=== PATIENT | male | born 1940 | race Asian ===

== ENCOUNTER 2018-04-02 09:09 | Inpatient (IN) | payer MEDICARE ==
[~2018-04-02] VITALS: Ht 162.6 cm; Wt 47.2 kg
[2018-04-02] MEDS: METRONIDAZOLE 500MG/NS 100ML 100 ML IV SCH (00:40)
[2018-04-02] MEDS ORDERED: SODIUM CHLORIDE 0.9% 1000ML 1,000 ML IV STA (09:25)
[2018-04-02 09:38] LABS: BASOPHILS # (AUTO) 0.1 (0.0-0.1); EOSINOPHILS % 0.4 % (0.0-6.0); HEMATOCRIT 25.9 % (38.2-49.6); HEMOGLOBIN 9.5 g/dL (14.0-18.0); LYMPHOCYTES # (AUTO) 1.3 (1.0-3.2); LYMPHOCYTES % 25.6 % (18.0-39.1); MEAN CORPUSCULAR HEMOGLOBIN 36.3 pg (28-32); MEAN CORPUSCULAR HGB CONC 36.7 g/dL (31-35); MEAN CORPUSCULAR VOLUME 98.9 fL (81-99); MONOCYTES # (AUTO) 0.6 (0.2-0.8); MONOCYTES % 12.8 % (4.4-11.3); PLATELET COUNT 113 x10e3/uL (140-360); RED BLOOD COUNT 2.62 x10e6/uL (4.3-5.7); RED CELL DISTRIBUTION WIDTH 15.6 % (11.7-14.4)
[2018-04-02 09:42] LABS: BILIRUBIN,URINE NEGATIVE (NEGATIVE); CLARITY,URINE CLEAR (CLEAR); COLOR,URINE YELLOW (YELLOW); KETONES,URINE NEGATIVE (NEGATIVE); LEUKOCYTE ESTERASE ,URINE NEGATIVE (NEGATIVE); NITRITE,URINE NEGATIVE (NEGATIVE); PROTEIN,URINE DIPSTICK NEGATIVE (NEGATIVE); URINE UROBILINOGEN 0.2 mg/dL (0.2 - 1)
[2018-04-02 10:12] LABS: BACTERIA,URINE FEW /HPF; EPITHELIAL CELLS,URINE FEW /LPF; RBC,URINE 0-5 /HPF (0-5); WBC,URINE (MAN) 0-5 /HPF (0-5)
[2018-04-02 10:16] LABS: ALBUMIN 3.1 g/dL (3.5-5.0); ALBUMIN/GLOBULIN RATIO 0.7 (0.8-2.0); ANION GAP 17.2 mmol/L (8-16); CALCIUM 8.7 mg/dL (8.4-10.2); CREATININE, SERUM 1.59 mg/dL (0.72-1.25); POTASSIUM 4.2 mmol/L (3.5-5.1)
[2018-04-02 10:22] LABS: CREATINE KINASE MB 1.7 ng/mL (0-5.0)
--- NOTE | 2018-04-02 10:31 | Diagnostic Imaging Report ---
PROCEDURE: CHEST SINGLE (PORTABLE) COMPARISON: None. INDICATIONS: SHORTNESS OF BREATH FINDINGS: LUNGS: No consolidations or edema. PLEURA: No effusions or pneumothorax. HEART \T\ MEDIASTINUM: The heart is within normal size-limits. BONES \T\ SOFT TISSUES: No acute findings. CONCLUSION: No acute thoracic abnormality. Jose Armas D.O. Dictated by: Jose Armas D.O. on 04/02/2018 at 10:35 Electronically approved by: Jose Armas D.O. on 04/02/2018 at 10:35
[2018-04-02] MEDS ORDERED: DIATRIZOATE MEGL/DIATRIZOA SOD 30 ML BTL PO ONE (11:29)
[2018-04-02] MEDS ORDERED: LORAZEPAM INJ 2 MG/ML VIAL IV PRN (12:15)
[2018-04-02] MEDS ORDERED: ONDANSETRON HCL INJ 2 MG/ML VIAL IV PRN (12:15)
[2018-04-02] MEDS ORDERED: MULTIVITAMINS- 12 INJECTION 10 ML, FOLIC ACID MDV 5 MG, THIAMINE HCL INJ 100 MG in SODI... IV ONE (12:15)
[2018-04-02] MEDS ORDERED: MORPHINE SULFATE 2 MG/ML SYR IV PRN (12:15)
[2018-04-02] MEDS ORDERED: INSULIN LISPRO 100 UNIT/1 ML 3ML VIAL SQ STA (12:18)
[2018-04-02] MEDS ORDERED: DEXTROSE 50% SYRINGE 50 ML IV PRN (12:30)
--- NOTE | 2018-04-02 13:27 | Diagnostic Imaging Report ---
PROCEDURE: CT ABDOMEN AND PELVIS WITHOUT CONTRAST TECHNIQUE: The abdomen and pelvis were scanned utilizing a multidetector helical scanner from the diaphragm to the lesser trochanter after the oral administration of dilute Gastrografin. No IV contrast was administered per physician's request. Coronal and sagittal multiplanar reformations were obtained. COMPARISON: None. INDICATIONS: ELEVATED BLOOD SUGAR FINDINGS: ABSENCE OF INTRAVENOUS CONTRAST DECREASES SENSITIVITY FOR DETECTION OF FOCAL LESIONS AND VASCULAR PATHOLOGY. LOWER THORAX: Minimal posterior medial right lower lobe atelectatic changes. Atherosclerotic calcification of the aortic valves, coronary arteries and thoracic aorta. HEPATOBILIARY: Heterogeneous attenuation of the hepatic parenchymal with diffusely decreased attenuation, consistent with fatty infiltration. Ill-defined 1.8 x 1.6 cm rounded lesion in hepatic segment (series 2, image 21) which is mildly hyperdense compared to the rest of the hepatic parenchyma. No biliary ductal dilation. Cholecystectomy clips. SPLEEN: No splenomegaly. PANCREAS: No focal lesion or ductal dilation. Mild pancreatic atrophy. No significant peripancreatic fat stranding, free fluid or fluid collections. ADRENALS: No adrenal nodules. KIDNEYS/URETERS: No hydronephrosis, stones, or solid mass lesions. Increased attenuation of the collecting systems, which may represent partly excreted contrast. PELVIC ORGANS/BLADDER: Bladder is moderately distended, but shows no focal lesions or wall thickening. Prostate is unremarkable. PERITONEUM / RETROPERITONEUM: No free air or fluid. LYMPH NODES: No lymphadenopathy. VESSELS: Moderate to marked atherosclerotic calcification of the abdominal aorta and iliac vessels. GI TRACT: No bowel dilation or evidence of obstruction. No pericolonic inflammatory changes. BONES AND SOFT TISSUES: No acute bony abnormalities. Multilevel degenerative disc changes in the lower thoracic and lumbosacral spine. Mild osteopenia. Facet hypertrophy L3-S1. IMPRESSION: 1. no acute abdominopelvic abnormalities in this noncontrast CT. 2. No significant peripancreatic fat stranding, free fluid or fluid collections to suggest pancreatitis. 3. Heterogeneous hepatic steatosis. An ill-defined 1.8 cm lesion in hepatic segment , which is higher in attenuation than the rest of the hepatic parenchyma may represent a focus of fatty sparing. This can be further assessed with MRI abdomen with liver mass protocol on a nonemergent basis and after clearing of current bowel contrast, if renal function permits. 4. Moderate to marked atherosclerotic vascular disease. Jules Whitfield M.D. Dictated by: Jules Whitfield M.D. on 04/02/2018 at 13:31 Electronically approved by: Jules Whitfield M.D. on 04/02/2018 at 13:31
[2018-04-02 16:20] VITALS: BP 115/74
[2018-04-02] MEDS: INSULIN REGULAR, HUMAN 100 UNIT/1 ML 3ML VIAL SQ SCH ×2 (16:30→20:45)
[2018-04-02 17:08] VITALS: BP 115/74
[2018-04-02] MEDS: SODIUM CHLORIDE 0.9% 1000ML 1,000 ML IV SCH (17:30)
[2018-04-02 17:52] LABS: CHOL/HDL RATIO 4.6 (3.9-4.7)
--- NOTE | 2018-04-02 19:53 | Diagnostic Imaging Report ---
EXAM: MR Abdomen WITHOUT Contrast Magnetic Resonance Cholangiopancreatography (M.R.C.P.) INDICATION: \S\liver lesion- further eval. COMPARISON: CT 04/02/2018 TECHNIQUE: Multiplanar and multisequence imaging was performed of the abdomen without contrast. T1-weighted, T2-weighted images, T1-weighted in and [id number], and Diffusion weighted images. M.R.C.P. Technique: Multiplanar, multisequence MRCP was performed. IV Contrast: None Oral Contrast: None Medications: None COMPLICATIONS: None FINDINGS: LOWER THORAX: Unremarkable. HEPATOBILIARY: Diffuse signal loss on out of phase images compatible with steatosis. Right hepatic 2.3 cm and 1.8 cm lesions (axial T2 FRFSE series 8 image 21) appear T2 intermediate, T1 hypointense, and show mild restricted diffusion. These remain incompletely characterized without intravenous contrast. These do not appear to represent fatty sparing. No biliary ductal dilation. GALLBLADDER: Cholecystectomy. SPLEEN: No splenomegaly. PANCREAS: No focal masses or ductal dilatation. ADRENALS: No adrenal nodules KIDNEYS/URETERS: Kidneys enhance symmetrically. No hydronephrosis. No suspicious signal abnormalities. GI TRACT: No abnormal distention, wall thickening, or evidence of bowel obstruction. LYMPH NODES: No lymphadenopathy. VESSELS: Lobulated contour of the abdominal aorta related to atherosclerosis. PERITONEUM / RETROPERITONEUM: No free fluid. BONES: Unremarkable. SOFT TISSUES: Unremarkable. IMPRESSION: Two lesions in the right hepatic lobe are inadequately evaluated without contrast and remain indeterminate. Recommend further evaluation with contrast-enhanced abdominal MRI when GFR permits. Otherwise, consider tissue sampling for definitive characterization or follow-up noncontrast MRI to document stability. Signed by: DR. Seven Galvez MD on 04/02/2018 7:49 PM
[2018-04-02 20:18] VITALS: BP 93/56
[2018-04-02] MEDS ORDERED: SODIUM CHLORIDE 0.9% 500ML 500 ML ONE ×2 (20:26→22:43)
[2018-04-02] MEDS ORDERED: SODIUM CHLORIDE 0.9% 1000ML 500 ML IV ONE (22:30)
[2018-04-02] MEDS: LEVOFLOXACIN 500MG/D5W 100ML 100 ML IV SCH (23:45)
[2018-04-03 00:31] VITALS: BP 95/74
[2018-04-03] MEDS: METRONIDAZOLE 500MG/NS 100ML 100 ML IV SCH ×4 (00:45→22:10)
[2018-04-03 05:24] VITALS: BP 80/57
[2018-04-03 06:20] LABS: BASOPHILS % 0.4 % (0.0-1.0); EOSINOPHILS % 0.6 % (0.0-6.0); HEMATOCRIT 22.9 % (38.2-49.6); HEMOGLOBIN 8.5 g/dL (14.0-18.0); LYMPHOCYTES % 42.4 % (18.0-39.1); MEAN CORPUSCULAR HEMOGLOBIN 36.8 pg (28-32); MEAN CORPUSCULAR HGB CONC 37.1 g/dL (31-35); MEAN CORPUSCULAR VOLUME 99.1 fL (81-99); MONOCYTES # (AUTO) 0.5 (0.2-0.8); MONOCYTES % 11.4 % (4.4-11.3); NEUTROPHILS # (AUTO) 2.1 (2.1-6.9); RED BLOOD COUNT 2.31 x10e6/uL (4.3-5.7); RED CELL DISTRIBUTION WIDTH 15.3 % (11.7-14.4)
[2018-04-03 06:42] LABS: CALCIUM 7.6 mg/dL (8.4-10.2); CREATININE, SERUM 1.25 mg/dL (0.72-1.25)
[2018-04-03 06:54] LABS: ANION GAP 14.2 mmol/L (8-16)
[2018-04-03 06:55] LABS: POTASSIUM 3.2 mmol/L (3.5-5.1)
[2018-04-03] MEDS: INSULIN REGULAR, HUMAN 100 UNIT/1 ML 3ML VIAL SQ SCH ×4 (07:30→21:00)
[2018-04-03 07:31] LABS: ALBUMIN 2.4 g/dL (3.5-5.0); ALBUMIN/GLOBULIN RATIO 0.6 (0.8-2.0); ANION GAP 12.3 mmol/L (8-16); CALCIUM 7.7 mg/dL (8.4-10.2); CREATININE, SERUM 1.32 mg/dL (0.72-1.25); POTASSIUM 3.3 mmol/L (3.5-5.1)
[2018-04-03 07:46] LABS: PLATELET COUNT 47 x10e3/uL (140-360)
[2018-04-03 08:01] VITALS: BP 91/54
[2018-04-03] MEDS ORDERED: THIAMINE HCL INJ 100 MG/ML 2ML VIAL ONE (08:39)
[2018-04-03] MEDS ORDERED: THIAMINE HCL INJ 100 MG/ML 2ML VIAL IV SCH (09:00)
--- NOTE | 2018-04-03 09:44 | Progress Note ---
DATE: April 03, 2018 TIME: 8 a.m. SUBJECTIVE: Overnight the patient was hypotensive. REVIEW OF SYSTEMS: Denies any chest pain, shortness of breath, fever or chills or sweats, no nausea, vomiting or diarrhea. OBJECTIVE VITAL SIGNS: Reviewed. Blood pressure is low at 80/57 and temperature as low at 95.9. GENERAL APPEARANCE: A tired-appearing man resting in the bed. HEENT: Anicteric. CARDIOVASCULAR: Normal S1 and S2. No murmurs. LUNGS: Moderate breath sounds, ABDOMEN: Soft and nontender. EXTREMITIES: There is no edema. SKIN: Dry. PSYCHIATRIC: Flat affect. LABS: Reviewed. MEDICATIONS: Reviewed. ASSESSMENT: A 77-year-old man. 1. Alcoholism. 2. Acute pancreatitis. 3. Diabetes mellitus. Hemoglobin A1c 9.9. LDL 21 and triglycerides 219. 4. Normocytic anemia. 5. Thrombocytopenia. 6. Hyponatremia. 7. Acute kidney injury. 8. Transaminitis. 9. Hepatic steatosis. 10. Liver lesion. 11. Severe sepsis with acute kidney injury. 12. Thrombocytopenia. PLAN: 1. Continue rehydration. 2. Add 2 grams of sodium chloride salt q.8 h. for hyponatremia. 3. Follow up BNP later today. 4. Consider replacing potassium. 5. Monitor renal function. 6. Thrombocytopenia, likely secondary to sepsis. 7. Obtain random serum cortisone. 8. Start Midodrine. 9. He received 3 liters bolus fluid overnight. Will give more fluids. 10. Obtain urine sodium, urine osmolality and serum osmolality. 11. Obtain during hospitalization. 12. Follow up hepatitis panel. 13. Follow up cultures. 14. I discussed with the daughter the need for the patient to remain in the hospital today. Job#: [id number]
--- NOTE | 2018-04-03 09:57 | History and Physical ---
TIME: 5 p.m. CHIEF COMPLAINT: Abnormal labs. HISTORY OF PRESENT ILLNESS: This is a 77-year-old man with a history of alcoholism, drinking more than 6 beers a day who has a history of liver lesion, now coming into the hospital after being found to have abnormal labs. Here the patient is found to be hyponatremic and having acute renal failure injury. He is admitted for further evaluation and management. All the history is obtained from the patient's daughter who speaks fluent Estonian. PAST MEDICAL HISTORY: Diabetes mellitus, alcoholism, hypertension, liver lesion. PAST SURGICAL HISTORY: Cholecystectomy. ALLERGIES: PER ELECTRONIC MEDICAL RECORDS. FAMILY/SOCIAL HISTORY: The patient is and has 5 children. No cigarettes and no illicits. Drinks more than 6 beers a day. He is a retired fisherman. MEDICATIONS: Per electronic medical records. REVIEW OF SYSTEMS: Denies any dizziness, chest pain, shortness of breath, fever or chills or sweats, no nausea, vomiting or diarrhea or leg pain. PHYSICAL EXAMINATION VITAL SIGNS: Have been reviewed on admission. GENERAL APPEARANCE: A tired-appearing man resting in the bed. HEENT: Anicteric. Pupils responsive to light. No oral lesions. CARDIOVASCULAR: Normal S1 and S2. LUNGS: Moderate breath sounds, ABDOMEN: Soft and nontender. Nondistended. EXTREMITIES: There is no edema. NEUROLOGIC: Alert and appropriate. Moving all extremities. SKIN: Has some bruising/purpura of the upper extremities. Skin is dry. PSYCHIATRIC: Flat affect. LABS: Reviewed. MEDICATIONS: Reviewed. ASSESSMENT: A 77-year-old man. 1. Alcoholism. 2. Acute pancreatitis. 3. Diabetes mellitus. 4. Normocytic anemia. 5. Thrombocytopenia. 6. Hyponatremia. 7. Acute kidney injury. 8. Transaminitis. 9. Hepatic steatosis. 10. Liver lesion. PLAN: 1. Rehydrate the patient. 2. Will need to use benzodiazepine p.r.n. for any withdrawal symptoms from alcohol. 3. Social workup for Alcoholics Anonymous and other resources. 4. Hemoglobin A1c and lipid panel. 5. Obtain hepatitis panel. 6. Obtain MRI of the liver. Daughter states that the patient is aware of a liver lesion and has been referred to car rental service attendant by his primary care physician but has not yet decided to go. 7. Continue with regimen. 8. May need to change vancomycin to clindamycin due to renal dysfunction. 9. Use SCDs. Avoid anticoagulants. Job#: [id number] DIOR
[2018-04-03] MEDS: CLINDAMYCIN 300MG 50 ML IV SCH ×3 (09:59→21:17)
[2018-04-03] MEDS: MIDODRINE 2.5 MG TAB PO SCH ×3 (10:00→17:41)
[2018-04-03] MEDS: SODIUM CHLORIDE 0.9% 1000ML 1,000 ML IV SCH (10:00)
[2018-04-03] MEDS: SODIUM CHLORIDE 1 GM TAB PO SCH ×3 (10:00→21:17)
[2018-04-03] MEDS: THIAMINE HCL IV SCH (11:00)
[2018-04-03] MEDS: SODIUM CHLORIDE 0.9% IV SCH (11:00)
[2018-04-03 11:35] LABS: PLATELET ESTIMATE MODERATELY DECREASED; PLATELET MORPHOLOGY COMMENT NORMAL; RBC MORPHOLOGY COMMENT NORMAL
[2018-04-03 12:29] VITALS: BP 102/64
[2018-04-03 14:46] LABS: ANION GAP 16.3 mmol/L (8-16); CALCIUM 7.9 mg/dL (8.4-10.2); CREATININE, SERUM 1.56 mg/dL (0.72-1.25); POTASSIUM 3.3 mmol/L (3.5-5.1)
[2018-04-03 16:00] VITALS: BP 138/61
[2018-04-03 20:12] VITALS: BP 113/64
[2018-04-03] MEDS: LEVOFLOXACIN 500MG/D5W 100ML 100 ML IV SCH (23:45)
[2018-04-04 02:46] VITALS: BP 123/70
[2018-04-04 04:00] VITALS: BP 146/86
[2018-04-04] MEDS: CLINDAMYCIN 300MG 50 ML IV SCH ×3 (05:40→21:45)
[2018-04-04] MEDS: METRONIDAZOLE 500MG/NS 100ML 100 ML IV SCH ×3 (06:30→22:30)
[2018-04-04 07:48] VITALS: BP 118/82
[2018-04-04] MEDS: MIDODRINE 2.5 MG TAB PO SCH ×3 (09:14→17:54)
[2018-04-04] MEDS: SODIUM CHLORIDE 1 GM TAB PO SCH ×3 (09:14→21:45)
[2018-04-04] MEDS: SODIUM CHLORIDE 0.9% IV SCH (09:14)
[2018-04-04] MEDS: THIAMINE HCL IV SCH (09:14)
[2018-04-04] MEDS: INSULIN REGULAR, HUMAN 100 UNIT/1 ML 3ML VIAL SQ SCH ×4 (09:15→21:45)
[2018-04-04 12:04] VITALS: BP 118/82
[2018-04-04 16:07] VITALS: BP 125/76
[2018-04-04] MEDS: SODIUM CHLORIDE 0.9% 1000ML 1,000 ML IV SCH ×2 (17:54→19:30)
[2018-04-04 20:00] VITALS: BP 146/80
[2018-04-04] MEDS ORDERED: POTASSIUM CHLORIDE 20MEQ/100ML 100 ML IV ONE (21:30)
--- NOTE | 2018-04-04 22:20 | Progress Note ---
DATE: April 04, 2018 TIME: 2119 OVERNIGHT: No acute events. REVIEW OF SYSTEMS: Patient denies chest pain, shortness of breath, fever, chills, sweats, nausea, vomiting, diarrhea, claudication, dizziness, headache, or blurry vision with rn house supervisor at bedside. PHYSICAL EXAMINATION: VITAL SIGNS: Temperature 97.7, P 90, respirations 20, BP 146/80, pulse ox 98% on room air. GENERAL APPEARANCE: This is a pleasant, tired-appearing man, resting quietly in bed. HEENT: Normocephalic, oral mucosa moist and intact with poor dentition, no sinus tenderness. CV: S1 and S2 with faint systolic murmur noted. LUNGS: Bilateral breath sounds are clear to auscultation in all correa. ABDOMEN: Soft, nontender, nondistended, with no organomegaly noted. EXTREMITIES: Without edema, however, patient with scattered ecchymosis to bilateral lower extremities and significant dryness. Areas of edema to upper extremities as well. NEUROLOGIC: A and O x3. Moves all extremities and follow commands. SKIN: As above with purpura of the upper extremities and dryness. PSYCHIATRIC: Normal affect. LABS: Reviewed. MEDICATIONS: 1. Sodium chloride tabs 2 g p.o. t.i.d. 2. Midodrine 5 mg p.o. t.i.d. 3. NS at 60 mL an hour. 4. Sliding scale insulin. 5. Clindamycin q.8h. IV. 6. Flagyl q.8h. IV. 7. Thiamine daily in normal saline. 8. Levaquin q.24h. IV. 9. PRN D50. 10. PRN Ativan. 11. PRN Zofran. 12. PRN morphine sulfate. ASSESSMENT AND PLAN: This is a 77-year-old man with: 1. Alcoholism. Case management notified to obtain Alcoholics Anonymous and other resources as indicated. 2. Acute pancreatitis. Markedly elevated serum osmolality, bilirubin, AST and ALT. Will follow values in a.m. to assess efficacy of treatment plan. 3. Normocytic anemia. Follow up counts in a.m. 4. Thrombocytopenia. Platelets continue to decrease. 5. Hyponatremia/hypokalemia. Replace potassium and follow up in a.m. 6. Acute kidney injury. Follow up values in a.m. 7. Transaminitis. As above with pancreatic surveillance. 8. Hepatic steatosis. Magnetic resonance imaging completed. Will need outpatient followup. 9. Liver lesion. Outpatient followup. 10. Disposition. Hepatitis, sedimentation rate, cortisol, and heparin-induced platelet abnormality values are all pending at this time. Will continue replacement of sodium chloride and potassium, intravenous fluids, and assess values in the a.m. Dictated by Nicolle Nelson NP Job#: [id number]
--- NOTE | 2018-04-04 22:25 | Progress Note ---
DATE: April 04, 2018 TIME: 2129 SUBJECTIVE: Overnight, no acute events. REVIEW OF SYSTEMS: The patient denies chest pain, shortness of breath, fever, chills, sweats, nausea, vomiting, diarrhea, leg pain, or claudication. PHYSICAL EXAMINATION: VITAL SIGNS: T 97.7, P 90, respirations 20, BP 146/80, SpO2 98% on room air. GENERAL APPEARANCE: This is a tired-appearing man, resting supine in bed. HEAD, EYES, EARS, NOSE, THROAT: Normocephalic. Oral mucosa moist and intact with poor dentition. No sinus tenderness. CV: S1 and S2 with faint 1/6 systolic murmur present. LUNGS: Bilateral breath sounds clear to auscultation. ABDOMEN: Soft, nontender, nondistended. EXTREMITIES: Trace edema nonpitting to pretibial area. SKIN: Dry with scattered ecchymosis to lower extremities and upper extremities as well. PSYCHIATRIC: Flat affect. LABORATORY DATA: Reviewed. MEDICATIONS: Reviewed. ASSESSMENT AND PLAN: This is a 77-year-old man with: 1. Alcoholism. Case management asked to provide outside resources to include alcoholics anonymous. 2. Acute pancreatitis. Treatment and plan as above. 3. Diabetes mellitus type 2. A1c elevated at 9.9 with LDL of 21 and TG 219. 4. Normocytic anemia. We will follow values in the morning. 5. Thrombocytopenia. Heparin induced. Platelet panel pending. 6. Hyponatremia/hypokalemia. Will replace and follow in the morning. 7. Acute kidney injury. Follow values in the morning. 8. Transaminitis. We will continue fluids. Hepatitis panel, urine osmolality/serum osmolality with urine sodium in addition to cortisol levels are all pending. 9. Hepatic steatosis per imagining with liver lesion. Follow up possibly biopsy. 10. Severe sepsis with acute kidney injury. Will continue on intravenous fluids. DISPOSITION: Continue IV fluids. Follow up on pending lab values in the morning. Dictated by: Nicolle Nelson NP. Job#: [id number] LUIGI
[2018-04-04] MEDS: LEVOFLOXACIN 500MG/D5W 100ML 100 ML IV SCH (23:20)
[2018-04-05] VITALS: BP 129/76
[2018-04-05 04:00] VITALS: BP 128/87
[2018-04-05] MEDS: CLINDAMYCIN 300MG 50 ML IV SCH (05:30)
[2018-04-05 06:04] LABS: BASOPHILS % 0.7 % (0.0-1.0); EOSINOPHILS # (AUTO) 0.1 (0.0-0.4); EOSINOPHILS % 1.5 % (0.0-6.0); HEMOGLOBIN 7.3 g/dL (14.0-18.0); LYMPHOCYTES # (AUTO) 1.6 (1.0-3.2); LYMPHOCYTES % 29.5 % (18.0-39.1); MEAN CORPUSCULAR HEMOGLOBIN 36.7 pg (28-32); MEAN CORPUSCULAR HGB CONC 34.8 g/dL (31-35); MEAN CORPUSCULAR VOLUME 105.5 fL (81-99); MONOCYTES # (AUTO) 0.7 (0.2-0.8); NEUTROPHILS # (AUTO) 3.1 (2.1-6.9); NEUTROPHILS % 55.8 % (38.7-80.0); PLATELET COUNT 51 x10e3/uL (140-360); RED BLOOD COUNT 1.99 x10e6/uL (4.3-5.7); RED CELL DISTRIBUTION WIDTH 16.7 % (11.7-14.4)
[2018-04-05] MEDS: METRONIDAZOLE 500MG/NS 100ML 100 ML IV SCH (06:16)
[2018-04-05 06:26] LABS: ALBUMIN 2.3 g/dL (3.5-5.0); ALBUMIN/GLOBULIN RATIO 0.7 (0.8-2.0); ANION GAP 9.6 mmol/L (8-16); CALCIUM 7.6 mg/dL (8.4-10.2); CREATININE, SERUM 1.23 mg/dL (0.72-1.25); POTASSIUM 3.6 mmol/L (3.5-5.1)
[2018-04-05 07:08] LABS: HEMOGLOBIN 7.1 g/dL (14.0-18.0)
[2018-04-05] MEDS: INSULIN REGULAR, HUMAN 100 UNIT/1 ML 3ML VIAL SQ SCH (07:30)
[2018-04-05 07:31] LABS: HEMATOCRIT 20.4 % (38.2-49.6)
[2018-04-05] MEDS ORDERED: THIAMINE HCL INJ 100 MG/ML 2ML VIAL ONE (07:38)
[2018-04-05] MEDS: MIDODRINE 2.5 MG TAB PO SCH (08:15)
[2018-04-05] MEDS: THIAMINE HCL IV SCH (08:16)
[2018-04-05] MEDS: SODIUM CHLORIDE 1 GM TAB PO SCH (08:16)
[2018-04-05] MEDS: SODIUM CHLORIDE 0.9% IV SCH (08:16)
[2018-04-05] MEDS ORDERED: SODIUM CHLORIDE 0.9% 250ML 250 ML IV ONE (08:30)
[2018-04-05] MEDS ORDERED: MIDODRINE HCL2.5 MG PO (08:39)
[2018-04-05] MEDS ORDERED: SODIUM CHLORIDE1 GM PO (08:39)
[2018-04-05] MEDS ORDERED: SUCRALFATE1 GM PO (08:39)
[2018-04-05] MEDS ORDERED: PANTOPRAZOLE SO40 MG PO (08:39)
[2018-04-05] MEDS ORDERED: FLAGYL500 MG PO (08:43)
[2018-04-05] MEDS ORDERED: PANTOPRAZOLE 40 MG 10ML VIAL IV SCH (09:00)
--- NOTE | 2018-04-05 09:10 | Discharge Summary ---
PRINCIPAL DIAGNOSES 1. Moderate anemia. 2. Alcoholism. 3. Acute pancreatitis. 4. Diabetes mellitus type 2. Glycosylated hemoglobin 9.9, low-density lipoprotein 21 and triglycerides 219. 5. Normocytic anemia. 6. Thrombocytopenia secondary to liver disease. 7. Acute kidney injury. 8. Hyponatremia. 9. Hypokalemia. 10. Transaminitis. 11. Hepatic steatosis. 12. Liver lesion, which is chronic. 13. Severe sepsis. SECONDARY DIAGNOSIS: Alcoholism. CHIEF COMPLAINT: Abnormal labs. HISTORY OF PRESENT ILLNESS: This is a 77-year-old man with abnormal labs. Please refer to the H and P for further details. HOSPITAL COURSE: The patient was found to have acute pancreatitis and transaminitis. He has a liver lesion which is chronic. The patient is aware and has decided not to follow up with hematology at this time. He had hyponatremia treated with IV fluids normal saline and salt tablets. He had acute kidney injury, which improved with IV fluids. He has severe sepsis with acute kidney injury treated with antibiotics. The patient is doing better. He has refused blood transfusion for falling hemoglobin blood counts. He will be discharged home and will follow up with his primary care doctor. DISCHARGE MEDICATIONS: Per electronic medical record and include pantoprazole and sucralfate, also include Flagyl. FOLLOWUP: With primary care doctor in 2 to 3 days for recheck of his blood counts. I will discharge him with pantoprazole and sucralfate for possible peptic ulcer disease. CONDITION ON DISCHARGE: Fair to stable. AYAKA QUILES MD Job#: [id number]
== END 2018-04-05 09:49 | disposition home or self-care (01) | DRG 872 ==
LOC: ER 09:09 → ERHOLD 12:33 → MED/SURG2 16:01
PROVIDERS: ADMIT Internal Medicine; ATTEND Internal Medicine
DX: A41.9 Sepsis, unspecified organism (principal); N17.9 Acute kidney failure, unspecified; E87.1 Hypo-osmolality and hyponatremia; R65.20 Severe sepsis without septic shock; F10.20 Alcohol dependence, uncomplicated; Y90.9 Presence of alcohol in blood, level not specified; E86.0 Dehydration; D69.6 Thrombocytopenia, unspecified; E11.9 Type 2 diabetes mellitus without complications
CPT/HCPCS: 36415; 71045; 74176; 74181; 80048; 80053; 80061; 81001; 82150; 82533; 82550; 82553; 82947; 82948; 83036; 83690; 83935; 84295; 84300; 84484; 84520; 85014; 85018; 85025; 86022; 87040; 93005; 99284; J1956; J3411; J3480; J7030; J7040